=== PATIENT | male | born 1990 | race Caucasian/White ===

== ENCOUNTER 2019-09-20 07:26 | Emergency (ER) | payer SELFPAY ==
[2019-09-20] VITALS (8 sets, daily range): BP systolic 100–136; BP diastolic 52–88; PULSE 55–79; RESP 14–25; TEMP 36.9; O2SAT 95–100; BMI 40.6
--- NOTE | 2019-09-20 07:34 | PC.NURSE ---
went to bed feeling fine after a 12hr shift. 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 patient woke around 0300 with dizziness. Dizziness worse with movement of his head. Reports some nausea and sweating prior to arrival. Denies any chest pain or SOB. Pt is a pediatric critical care nurse and checked his blood pressure at home with reading of 198/108. No HTN history not on any meds. Normal blood sugar at home as well.
[2019-09-20] MEDS: MECLIZINE HCL 12.5 MG TABLET 25 MG PO (07:51)
[2019-09-20] MEDS: ONDANSETRON 4 MG ODT PO (07:51)
--- NOTE | 2019-09-20 08:59 | ED.DIZZY ---
HPI - Dizziness General Chief Complaint: Dizziness Stated Complaint: 'world is spinning',possible high blood pressure Time Seen by Provider: 09/20/19 07:45 Source: patient Mode of arrival: Ambulatory History of Present Illness HPI Narrative: 29-year-old otherwise healthy gentleman who woke up at 3 this morning with acute vertigo. No fevers no upper respiratory infections no ear complaints. He is not been sick recently. He has never experienced symptoms like this before. He notes it is worse when he opens his eyes but it does not seem significantly worse with position. He has not noted any additional neurologic symptoms, specifically: No numbness tingling, difficulty thinking, no trouble walking or with fine motor skills. He denies any previous head injuries. MD complaint: dizziness Onset (ago): hour(s) Time: 03:00 Timing: awoke with symptoms Description: room spinning History of similar episodes: No History of trauma: No Severity: moderate Exacerbating factors: movement Related Data Previous Rx's Medication Instructions Recorded meclizine 25 mg PO TID PRN #30 tab 09/20/19 ondansetron 4 mg PO Q8H PRN #14 tab 09/20/19 Allergies Allergy/AdvReac Type Severity Reaction Status Date / Time No Known Drug Allergies Allergy Verified 09/20/19 07:31 Review of Systems Review of Systems Narrative: Negative except for HPI, otherwise unremarkable Patient History Substance Use Type: does not use Exam Initial Vital Signs Initial Vital Signs: Vital Signs Temperature 98.4 F 09/20/19 07:31 Pulse Rate 76 09/20/19 07:31 Respiratory Rate 15 09/20/19 07:31 Blood Pressure 136/88 09/20/19 07:31 Pulse Oximetry 100 09/20/19 07:31 Const General: cooperative, healthy appearing and well developed Nutritional Appearance: well nourished Orientation: alert and oriented x3 HENMT Head: normal to inspection and atraumatic Ears: right TM abnormal (Serous effusion with slight retraction on the right, no erythema) and TM normal on the left Eyes General: appearance normal, both eyes and all related structures (No nystagmus at rest or with positional changes) EOM: EOM intact bilaterally Neck Neck: full ROM and no meningeal signs Resp Effort & Inspection: normal respiratory effort Auscultation: clear to auscultation bilaterally Cardio Rate: regular rate Rhythm: regular rhythm Heart Sounds: no murmurs GI Palpation: soft Auscultation: normal bowel sounds Back/Spine/Pelvis Back: normal to inspection Skin General: no rashes or lesions noted Neuro General: alert and oriented x3 Cognition: normal cognition Speech: speech normal Gait: normal gait Motor: muscle tone normal throughout and strength 5/5 throughout Sensory Exam: no sensory deficits noted Other: NIH score equals 0 Extrem General: normal to inspection Psych Mental Status: mental status grossly normal Speech and Movement: speech and movement normal Course Course Course Narrative: Initially presents with acute vertigo without signs or symptoms of stroke. Does not appear to be positional and he has no nystagmus. He does have a slight effusion on the right side and it may be related to that. Begin with meclizine and Zofran and re-evaluate Orders Ordered: Discontinued Medications Meclizine HCl (Antivert) 25 mg PO NOW ONE Stop: 09/20/19 07:46 Last Admin: 09/20/19 07:51 Dose: 25 mg Documented by: MILLIE Ondansetron HCl (Zofran Odt) 4 mg PO NOW ONE Stop: 09/20/19 07:46 Last Admin: 09/20/19 07:51 Dose: 4 mg Documented by: MILLIE Vital Signs Vital signs: Vital Signs - 8 hr 09/20/19 12:03 Pulse Rate 68 Respiratory Rate 14 Blood Pressure 108/55 L Pulse Oximetry 97 MDM - Dizziness Differential Diagnosis Differential diagnosis: Likely adverse reaction to drug, benign paroxysmal positional vertigo, vertebral basilar insufficiency, cerebrovascular accident, acute vestibular neuronitis and transient cerebral ischemia Medical Records Attestation: I reviewed the patient's medical records. ECG Data Attestation: I personally reviewed and interpreted this ECG as follows: Interpretation: Rate of 75, sinus rhythm, QTC of 414ms and normal axis MDM Narrative Medical decision making narrative: Presents with acute vertigo. Does have serous effusion in the right ear. No other viral upper respiratory symptoms. No fever no nystagmus. No evidence of acute stroke or other acute neurologic findings. He responded nicely to meclizine and Zofran and will be prescribed both of these for home discharge. Discharge Plan Departure Patient Disposition: Home Clinical Impression: Vertigo Discharge Date/Time: 09/20/19 12:03 Instructions: DI for Vertigo Activity Restrictions/Additional Instructions: Thank you for coming in today. You have a vertigo and it likely is related to the slight bit of fluid behind ear ear drum on the right side. Often times this is a viral infection. I suspect the ear going to feel better within the next few days. He responded nicely to meclizine for the vertigo and Zofran for the nausea. He can use both of these as needed and have given you prescriptions for both of these medications. There is no evidence of stroke, bacterial infection or other life-threatening issues today. I hope you would feel better soon Prescriptions: New meclizine 25 mg tablet 25 mg PO TID PRN (Reason: dizziness or vertigo) Qty: 30 RF: 0 ondansetron 4 mg tablet,disintegrating 4 mg PO Q8H PRN (Reason: nausea and vomiting) Qty: 14 RF: 0 Stand Alone Forms: Work Release Note
== END 2019-09-20 12:03 | disposition home or self-care (01) ==
PROVIDERS: Emergency Provider Emergency Medicine
DX: R42 Dizziness and giddiness (principal)
CPT/HCPCS: 93005; 99283

== ENCOUNTER 2021-07-19 16:56 | Emergency (ER) | payer OTHER, SELFPAY ==
[2021-07-19 17:10] VITALS: BP 165/99; PULSE 111; RESP 20; TEMP 36.6; O2SAT 100
[2021-07-19] MEDS: diazePAM 5 MG TABLET PO (17:49)
[2021-07-19] MEDS: KETOROLAC 30 MG/ML VIAL IM (17:49)
--- NOTE | 2021-07-19 19:24 | ED.BACK ---
HPI - Back Pain/Injury General Chief Complaint: Back Pain/Injury Stated Complaint: THREW HIS BACK OUT Time Seen by Provider: 07/19/21 18:00 Source: patient Mode of arrival: Ambulatory History of Present Illness HPI Narrative: Patient is a 31-year-old male. Several weeks ago he was involved in a workplace injury where he stated that he hurt his knee. He has been involved with [facility] [employer] [facility] because of this. Has had some back issues off and on since then but today he was sitting down. He went to stand up and had a sudden intense onset of pain in his lower back. It has continued since then. No fevers. Has been doing Tylenol and ibuprofen at home without any improvement. Some pain radiating down his left leg. No urinary symptoms. No change of bowel habits. Related Data Previous Rx's Medication Instructions Recorded meclizine 25 mg tablet 25 mg PO TID PRN #30 tab 09/20/19 ondansetron 4 mg disintegrating 4 mg PO Q8H PRN #14 tab 09/20/19 tablet cyclobenzaprine 10 mg tablet 10 mg PO TID PRN #20 tab 07/19/21 hydrocodone 5 mg-acetaminophen 325 1 tab PO Q8H PRN #14 tab 07/19/21 mg tablet prednisone 20 mg tablet 20 mg PO DAILY 5 Days #5 tab 07/19/21 Allergies Allergy/AdvReac Type Severity Reaction Status Date / Time No Known Drug Allergies Allergy Verified 09/20/19 07:31 Review of Systems Gastrointestinal Gastrointestinal: Reports as per HPI and Reports system reviewed and no additional complaints, except as documented Genitourinary Genitourinary: Reports system reviewed and no additional complaints, except as documented and Reports as per HPI Musculoskeletal Musculoskeletal: Reports system reviewed and no additional complaints, except as documented and Reports as per HPI Integumentary/Breasts Skin/Breast: Reports system reviewed and no additional complaints, except as documented and Reports as per HPI Neurologic Neurologic: Reports system reviewed and no additional complaints, except as documented and Reports as per HPI Hematologic/Lymphatic On Anticoagulants: No Patient History Medical History Knee pain Social History lives independently: Yes Substance Use Type: does not use Exam Initial Vital Signs Initial Vital Signs: Vital Signs Temperature 97.8 F 07/19/21 17:10 Pulse Rate 111 H 07/19/21 17:10 Respiratory Rate 20 07/19/21 17:10 Blood Pressure 165/99 H 07/19/21 17:10 Pulse Oximetry 100 07/19/21 17:10 HENMT Head: normal to inspection and normocephalic Back/Spine/Pelvis Back: normal to inspection Thoracic/Lumbar Spine: No thoracic spinal tenderness and lumbar spinal tenderness Sacroiliac Joints: tender to palpation bilateral Sacrum: tenderness Skin General: no rashes or lesions noted Neuro General: patient alert, patient awake and moves all extremities Extrem General: normal to inspection Psych Appearance: grossly normal and well kempt Course Orders Ordered: Discontinued Medications Diazepam (Diazepam 5 Mg Tablet) 5 mg PO NOW ONE Stop: 07/19/21 17:16 Last Admin: 07/19/21 17:49 Dose: 5 mg Documented by: FAYE Hydromorphone HCl (Hydromorphone 1 Mg Inj) 1 mg IM NOW ONE Stop: 07/19/21 19:25 Last Admin: 07/19/21 19:29 Dose: 1 mg Documented by: BELGICA Ketorolac Tromethamine (Ketorolac 30 Mg/Ml Vial) 30 mg IM NOW ONE Stop: 07/19/21 17:17 Last Admin: 07/19/21 17:49 Dose: 30 mg Documented by: FAYE Vital Signs Vital signs: Vital Signs - 8 hr 07/19/21 17:10 07/19/21 19:42 Temperature 97.8 F Pulse Rate 111 H 77 Respiratory Rate 20 18 Blood Pressure 165/99 H 127/60 Pulse Oximetry 100 98 MDM - Back Pain/Injury MDM Narrative Medical decision making narrative: I have a very high suspicion that the patient's presenting symptoms today are musculoskeletal in origin. Given the fact that he was sitting and then stood up and that is when his symptoms started. No fevers. No urinary symptoms. No change in bowel habits. Low suspicion for cauda equina. Low suspicion for fracture. No indication for radiologic studies based on his exam and presentation today. Will provide symptom treatment. Have him contact his primary doctor for follow-up. He was given return precautions. He expressed understanding and agreement. Discharge Plan Departure Patient Disposition: Home Clinical Impression: Lumbar back pain Instructions: DI for Low Back Pain Activity Restrictions/Additional Instructions: It is important that you try to stay as active as possible. I recommend you contact your primary doctor and also to your [facility] and [facility] provider for further workup is you may need further imaging of your lower back or potentially physical therapy. Take the medications as directed. Continue to take Tylenol/ibuprofen. Return to the emergency department for any new symptoms Prescriptions: New prednisone 20 mg tablet 20 mg PO DAILY 5 Days Qty: 5 RF: 0 cyclobenzaprine 10 mg tablet 10 mg PO TID PRN (Reason: muscle spasm) Qty: 20 RF: 0 hydrocodone-acetaminophen 5-325 mg tablet 1 tab PO Q8H PRN (Reason: pain) Qty: 14 RF: 0 No Action meclizine 25 mg tablet 25 mg PO TID PRN (Reason: dizziness or vertigo) Qty: 30 RF: 0 ondansetron 4 mg tablet,disintegrating 4 mg PO Q8H PRN (Reason: nausea and vomiting) Qty: 14 RF: 0
[2021-07-19] MEDS: HYDROMORPHONE 1 MG INJ IM (19:29)
[2021-07-19 19:42] VITALS: BP 127/60; PULSE 77; RESP 18; O2SAT 98
== END 2021-07-19 19:43 | disposition home or self-care (01) ==
PROVIDERS: Emergency Provider Emergency Medicine
DX: M54.50 Low back pain, unspecified (principal); Y99.0 Civilian activity done for income or pay
CPT/HCPCS: 96372; 99283; J1170; J1885